=== PATIENT | male | born 1945 | race Caucasian/White ===

== ENCOUNTER → 2023-11-01 11:43 | Outpatient (CLI) | payer OTHER, SELFPAY ==
--- NOTE | 2023-11-01 11:49 | DI.MRI.S_ITS ---
PROCEDURE: MR HEAD/BRAIN WO/W CON INDICATIONS: STROKE LIKE SYMPTOMS TECHNIQUE: Noncontrast axial T1 spin echo, axial T2 fast spin echo, sagittal and axial FLAIR, coronal T2 fast spin echo, axial gradient echo, axial diffusion and ADC through the brain. After the administration of contrast, axial and coronal and sagittal T1 spin echo with fat saturation through the brain. COMPARISON: None. FINDINGS: Image quality: Excellent. CSF spaces: Basal cisterns are patent. No extra-axial fluid collections. Ventricles are normal in size and shape. Brain: No midline shift. No intracranial bleeds or masses. No abnormal intracranial enhancement. There is cerebral volume loss for age. There is periventricular white matter chronic small vessel ischemic change. The brainstem appears normal. Diffusion-weighted images demonstrate no acute infarct. No chronic ischemic insults. Normal intravascular flow voids are present. Skull and face: Calvarial marrow is normal in signal. Bilateral lens replacements. Otherwise, the orbits are unremarkable. Sinuses: Sinuses and mastoids appear clear. IMPRESSION: No acute or subacute infarct. No acute intracranial abnormalities or abnormal intracranial enhancement. Age-related global volume loss and chronic microvascular ischemic changes. Dictated by: Husam Nance M.D. on 11/01/2023 at 19:05 Approved by: Husam Nance M.D. on 11/01/2023 at 19:08
== END ==
LOC: MRI 11:47
PROVIDERS: Referring Provider Family Medicine; Visit Provider Family Medicine
DX: H53.9 Unspecified visual disturbance (principal); Z96.1 Presence of intraocular lens
CPT/HCPCS: 70553; A9579